=== PATIENT | female | born 2000 | race Caucasian/White ===

== ENCOUNTER 2022-07-20 22:06 | Emergency (ER) | payer OTHER ==
[~2022-07-20] VITALS: Ht 154.9 cm; Wt 45.4 kg
--- NOTE | 2022-07-21 00:20 | NUR ---
BIB FOR WEAKNESS, "MEDICAL LAST TUESDAY". [facility] AMBULATORY.
[2022-07-21 01:02] LABS: BASOPHILS % (AUTO) 0.1 % (0.0-2.0); HEMATOCRIT 38 % (33-45); HEMOGLOBIN 12.7 g/dL (11.5-14.8); LYMPHOCYTES # (AUTO) 1.1 K/uL (0.8-4.8); LYMPHOCYTES % (AUTO) 11.4 % (20.0-44.0); MEAN CORPUSCULAR HGB CONC 33 g/dl (31.0-36.0); MEAN CORPUSCULAR VOLUME 93 fL (82-100); MONOCYTES # (AUTO) 0.6 K/uL (0.1-1.30); MONOCYTES % (AUTO) 5.7 % (2.0-12.0); NEUTROPHILS % (AUTO) 82.8 % (43.0-81.0); PLATELET COUNT (AUTO) 359 K/uL (150-450); RED BLOOD CELL COUNT(AUTO) 4.06 MIL/uL (4.0-5.2); WHITE BLOOD COUNT (AUTO) 9.7 K/uL (4.3-11.0)
[2022-07-21 01:17] LABS: BILIRUBIN,URINE NEGATIVE (NEGATIVE); COLOR,URINE YELLOW (YELLOW); LEUKOCYTE ESTERASE ,URINE TRACE (NEGATIVE); NITRITE, URINE NEGATIVE (NEGATIVE); PH,URINE 5.5 (5.0-8.0); PROTEIN,URINE NEGATIVE (NEGATIVE); UGLUCOSE NEGATIVE (NEGATIVE); UROBILINOGEN,URINE 0.2 EU/dL (0.2)
[2022-07-21 01:19] LABS: BACTERIA,URINE Rare /HPF (None Seen); SQUAMOUS EPITHELIAL CELL,UR Few /HPF (None Seen)
[2022-07-21] MEDS ORDERED: ONDA4TAB11 PO (02:10)
--- NOTE | 2022-07-21 02:17 | NUR ---
Patient discharged to home in stable condition. Written and verbal after care instructions given. Patient verbalizes understanding of instruction.
[2022-07-21 02:21] VITALS: BP 107/80
== END 2022-07-21 02:21 | disposition home or self-care (01) ==
LOC: ER 22:18
DX: R42 Dizziness and giddiness (principal); R11.0 Nausea
CPT/HCPCS: 99283; 85025; 81001; 36415; 86900; A6403

== ENCOUNTER 2023-01-29 19:19 | Emergency (ER) | payer OTHER ==
[~2023-01-29] VITALS: Ht 154.9 cm; Wt 45.4 kg
[~2023-01-29 19:19] MED LIST: ONDA4TAB11 PO
[2023-01-29 19:27] VITALS: BP 110/66; TEMP 98
[2023-01-29] MEDS ORDERED: FLUO10CA29 PO (19:36)
[2023-01-29] MEDS ORDERED: FLUO40CA49 PO (19:36)
[2023-01-29] MEDS ORDERED: PARO-64 PO (19:40)
[2023-01-29] MEDS ORDERED: PARO30TA4 PO (19:40)
[2023-01-29 19:52] VITALS: O2SAT 97
== END 2023-01-29 19:54 | disposition home or self-care (01) ==
LOC: ER 19:27
DX: Z76.0 Encounter for issue of repeat prescription (principal); Z79.899 Other long term (current) drug therapy